=== PATIENT | female | born 1990 | race Caucasian/White ===

== ENCOUNTER 2016-10-12 15:43 | Emergency (ER) | payer OTHER ==
[~2016-10-12 15:43] MED LIST: ACET-654 PO; ACET50TA PO; IBUP80TA PO; LANOOIN21 EX; MULTTAB20 PO
== END 2016-10-12 16:05 | disposition left against medical advice (07) ==
LOC: M ED 15:43
DX: R10.31 Right lower quadrant pain (principal); F17.210 Nicotine dependence, cigarettes, uncomplicated; Z53.21 Procedure and treatment not carried out due to patient leaving prior to being seen by health care provider

== ENCOUNTER 2018-04-28 09:05 | Emergency (ER) | payer OTHER ==
[2018-04-28] MEDS: dexameTHASONE 4 MG/ML 1ML VIAL (J1100) PO (10:49)
== END 2018-04-28 10:52 | disposition home or self-care (01) ==
LOC: M ED 09:05
DX: J03.90 Acute tonsillitis, unspecified (principal); I10 Essential (primary) hypertension; R01.1 Cardiac murmur, unspecified; Z79.2 Long term (current) use of antibiotics
CPT/HCPCS: J1100

== ENCOUNTER 2018-06-04 10:22 | Emergency (ER) | payer OTHER ==
[2018-06-04] MEDS: ONDANSETRON 4MG/2ML VIAL (J2405) IV (10:52)
[2018-06-04] MEDS: NS 1,000 ML IV (10:53)
[2018-06-04 11:14] LABS: BASO % 0.3 % (0.0-1.0); EOS % 0.2 % (0.0-3.0); HEMATOCRIT 40.5 % (36.0-47.0); HEMOGLOBIN 13.3 g/dl (12.0-15.5); IMMATURE GRANULOCYTE % 0.3 % (0-3.0); LYMPH # 1.7 10^3/uL (1.5-6.5); LYMPH % 13.3 % (24.0-44.0); MEAN CORPUSCULAR HEMOGLOBIN 28.4 pg (27.0-33.0); MEAN CORPUSCULAR HGB CONC 32.8 g/dl (32.0-36.5); MEAN CORPUSCULAR VOLUME 86.4 fl (80.0-96.0); MONO # 1.1 10^3/uL (0.0-0.8); MONO % 8.6 % (0.0-5.0); NEUTROPHILS # 9.6 10^3/uL (1.8-7.7); NEUTROPHILS % 77.3 % (36.0-66.0); PLATELET COUNT, AUTOMATED 255 10^3/uL (150-450); RED BLOOD COUNT 4.69 10^6/uL (4.00-5.40); WHITE BLOOD COUNT 12.4 10^3/uL (4.0-10.0)
[2018-06-04 11:21] LABS: CONTROL LINE MONO INT CTR LINE PRESENT; MONO SCRN NEGATIVE (NEGATIVE)
[2018-06-04 11:26] LABS: ALBUMIN/GLOBULIN RATIO 0.85 (1.00-1.93); ALKALINE PHOSPHATASE 52 U/L (45-117); ALT/SGPT 20 U/L (12-78); ANION GAP 7 MEQ/L (8-16); AST/SGOT 11 U/L (7-37); BILIRUBIN,DIRECT 0.1 MG/DL (0.0-0.2); BILIRUBIN,TOTAL 0.6 MG/DL (0.2-1.0); BLOOD UREA NITROGEN 10 MG/DL (7-18); CARBON DIOXIDE LEVEL 28 MEQ/L (21-32); CHLORIDE LEVEL 104 MEQ/L (98-107); GLOMERULAR FILTRATION RATE > 60.0 (>60); GLUCOSE, FASTING 87 MG/DL (70-100); POTASSIUM SERUM 3.8 MEQ/L (3.5-5.1); SODIUM LEVEL 139 MEQ/L (136-145); TOTAL PROTEIN 8.7 GM/DL (6.4-8.2)
[2018-06-04] MEDS: KETOROLAC 30 MG/ML VIAL (J1885) IV (11:52)
[2018-06-04 11:53] LABS: KETONE, URINE AUTO RFX 1+ mg/dL (NEGATIVE); MUCUS, URINE RFX SMALL (NEGATIVE); NITRITE, URINE AUTO RFX NEGATIVE (NEGATIVE); RBC, URINE AUTO RFX 12 /HPF (0-3); SPECIFIC GRAVITY UR AUTO RFX 1.018 (1.002-1.035); SQUAM EPITHELIAL CELL UR AURFX 12 /HPF (0-6)
[2018-06-04 12:56] LABS: LEUKOCYTE ESTERASE UR AUTO RFX 3+ (NEGATIVE); WBC, URINE AUTO RFX 131 /HPF (0-3)
== END 2018-06-04 13:20 | disposition home or self-care (01) ==
LOC: M ED 10:22
DX: N10 Acute pyelonephritis (principal); N28.1 Cyst of kidney, acquired
CPT/HCPCS: J2405